=== PATIENT | female | born 1930 | race Caucasian/White ===

== ENCOUNTER 2016-12-10 15:46 | Emergency (ER) | payer OTHER ==
[~2016-12-10] VITALS: Ht 149.9 cm; Wt 49.2 kg
[~2016-12-10 15:46] MED LIST: CIPRO250 MG PO; ENDOCET 5-3251 EACH PO; ILOTYCIN1 GM BOTH EYES; KEFLEX750 MG PO; METAMUCIL FIBE1 EACH PO; MOTRIN400 MG PO; TRAVATAN Z5 ML BOTH EYES
[2016-12-10] MEDS ORDERED: TRAMADOL HCL50 MG PO (16:56)
[2016-12-10 18:07] VITALS: BP 153/96
== END 2016-12-10 18:08 | disposition home or self-care (01) ==
LOC: EME 15:46
PROC: 2W3CX1Z Immobilization of Right Lower Arm using Splint (ICD-10-PCS; principal; 2016-12-10)
DX: S52.501A Unspecified fracture of the lower end of right radius, initial encounter for closed fracture (principal); S52.601A Unspecified fracture of lower end of right ulna, initial encounter for closed fracture; S51.011A Laceration without foreign body of right elbow, initial encounter; W19.XXXA Unspecified fall, initial encounter; Y92.039 Unspecified place in apartment as the place of occurrence of the external cause; F03.90 Unspecified dementia, unspecified severity, without behavioral disturbance, psychotic disturbance, mood disturbance, and anxiety
CPT/HCPCS: 73080; 73110; 99281; 99284

== ENCOUNTER 2018-03-23 19:11 | Emergency (ER) | payer OTHER ==
[~2018-03-23] VITALS: Ht 157.5 cm; Wt 69.0 kg
[~2018-03-23 19:11] MED LIST changes: +TRAMADOL HCL50 MG PO
[2018-03-23 22:30] VITALS: BP 158/60
== END 2018-03-23 23:27 | disposition left against medical advice (07) ==
LOC: EME 19:11
DX: S51.811A Laceration without foreign body of right forearm, initial encounter (principal); W01.0XXA Fall on same level from slipping, tripping and stumbling without subsequent striking against object, initial encounter; H40.9 Unspecified glaucoma; Z88.0 Allergy status to penicillin; Z87.891 Personal history of nicotine dependence
CPT/HCPCS: 99281; 99284